=== PATIENT | female | born 1970 | race Hispanic/Latino ===

== ENCOUNTER 2016-12-12 13:14 | Emergency (ER) | payer OTHER ==
[2016-12-12 13:15] VITALS: BMI 20.3
[2016-12-12 13:26] VITALS: PULSE 75; TEMP 99.3; O2SAT 99
--- NOTE | 2016-12-12 13:38 | ED PDOC ---
Arrival/HPI - General Chief Complaint: Lower Extremity Problem/Injury Time Seen by Provider: 12/12/16 13:23 Historian: Patient - History of Present Illness Narrative History of Present Illness (Text): 12/12/16 13:33 A 46 year old female, whose past medical history includes melanoma, presents to the emergency department complaining of foot injury. Patient is an employee here at [employer] [facility] [place] whom reports twisting her right foot while walking to the nurse office. Patient mentions she had the X-Ray done and has shown a fracture. X- Ray will be repeated for patient. Patient denies any other complaints. PMD: Dr. Munoz Symptom Onset: Sudden Symptom Course: Unchanged Context: Work ([employer]) Past Medical History - Provider Review Nursing Documentation Reviewed: Yes - Infectious Disease Hx of Infectious Diseases: None - Tetanus Immunization Tetanus Immunization: Unknown - Reproductive Menopause: No - Cardiac Hx Cardiac Arrhythmia: (bigemeny) - Hematological/Oncological Hx Cancer: Yes (melonoma) - Psychiatric Hx Depression: No Hx Emotional Abuse: No Hx Physical Abuse: No Hx Substance Use: No - Suicidal Assessment Feels Threatened In Home Enviroment: No Family/Social History - Physician Review Nursing Documentation Reviewed: Yes Family/Social History: No Known Family HX Smoking Status: Unknown If Ever Smoked Hx Alcohol Use: No Hx Substance Use: No Allergies/Home Meds Allergies/Adverse Reactions: Allergies No Known Allergies Allergy (Verified 11/12/12 09:09) Review of Systems - Physician Review All systems were reviewed & negative as marked: Yes - Review of Systems Musculoskeletal: Other (foot pain) Neurological: absent: Headache, Dizziness Physical Exam Vital Signs Reviewed: Yes Vital Signs Temp Pulse Resp BP Pulse Ox 12/12/16 15:05 75 18 132/80 99 12/12/16 13:20 99.3 F 75 16 135/87 99 Temperature: Afebrile Blood Pressure: Normal Pulse: Regular Respiratory Rate: Normal Appearance: Positive for: Well-Appearing Pain Distress: None Mental Status: Positive for: Alert and Oriented X 3 - Systems Exam Head: Present: Atraumatic, Normocephalic Pupils: Present: PERRL Extroacular Muscles: Present: EOMI Conjunctiva: Present: Normal Mouth: Present: Moist Mucous Membranes Neck: Present: Normal Range of Motion Respiratory/Chest: Present: Clear to Auscultation, Good Air Exchange. No: Respiratory Distress, Accessory Muscle Use Cardiovascular: Present: Regular Rate and Rhythm, Normal S1, S2. No: Murmurs Abdomen: Present: Normal Bowel Sounds. No: Tenderness, Distention, Peritoneal Signs Back: Present: Normal Inspection Upper Extremity: Present: Normal Inspection. No: Cyanosis, Edema Lower Extremity: Present: Edema, Tenderness (right-side lateral foot, no ankle tenderness), Swelling (slight hematoma right lateral foot; no ankle swelling), Neurovascularly Intact. No: Erythema, Deformity Neurological: Present: GCS=15, CN II-XII Intact, Speech Normal Skin: Present: Warm, Dry, Normal Color. No: Rashes Psychiatric: Present: Alert, Oriented x 3, Normal Insight, Normal Concentration Medical Decision Making ED Course and Treatment: 12/12/16 13:53 Impression: 46 year old female with foot injury. Physical exam shows tenderness of right-side lateral foot, edema, slight hematoma. r/o Fracture Plan: -- Right Foot X-Ray -- Reassess and disposition Progress Notes: 12/12/2016 14:02 Foot X-Ray IMPRESSION: Transverse nondisplaced fracture through the base of the 5th metatarsal Dictator : Vega Trejo MD 12/12/16 15:08 Case was discussed with Dr. Salazar, Orthopedics as per patient request. He recommended placing foot in a surgical shoe and ervin wrap. Also recommended giving patient crutches and to follow up tomorrow with Dr. Salazar tomorrow at 10am. Melissa HINA gave her crutches with instructions. A copy of the xrays were given to this patient. Family at bedside will take her home. - RAD Interpretation Radiology Orders: 12/12/16 13:37 FOOT RIGHT 3 VIEWS ROUTINE [RAD] Stat Health Technician Hearing: ED Physician - Medication Orders Current Medication Orders: Discontinued Medications Ibuprofen (Motrin Tab) 600 mg PO STAT STA Stop: 12/12/16 13:39 Last Admin: 12/12/16 13:51 Dose: 600 mg - Scribe Statement The provider has reviewed the documentation as recorded by the Nolvia Kimball Provider Scribe Attestation: All medical record entries made by the Nolvia were at my direction and personally dictated by me. I have reviewed the chart and agree that the record accurately reflects my personal performance of the history, physical exam, medical decision making, and the department course for this patient. I have also personally directed, reviewed, and agree with the discharge instructions and disposition. Disposition/Present on Arrival - Present on Arrival Any Indicators Present on Arrival: No History of DVT/PE: No History of Uncontrolled Diabetes: No Urinary Catheter: No History of Decub. Ulcer: No History Surgical Site Infection Following: None - Disposition Have Diagnosis and Disposition been Completed?: Yes Diagnosis: Foot fracture Disposition: HOME/ ROUTINE Disposition Time: 15:08 Patient Plan: Discharge Condition: IMPROVED Discharge Instructions (ExitCare): Foot Fracture in Adults (ED) Additional Instructions: Ms Bangura, thank you for letting us take care of you today. Your provider was Dr. Gregorio You were treated for Foot Fracture. The emergency medical care you received today was directed at your acute symptoms. If you were prescribed any medication, please fill it and take as directed. It may take several days for your symptoms to resolve. Return to the Emergency Department if your symptoms worsen, do not improve, or if you have any other problems. Please contact your doctor or call one of the physicians/clinics you have been referred to that are listed on the Patient Visit Information form that is included in your discharge packet. Bring any paperwork you were given at discharge with you along with any medications you are taking to your follow up visit. Our treatment cannot replace ongoing medical care by a primary care provider (PCP) outside of the emergency department. Thank you for allowing the [facility] team to be part of your care today. If you had an X-Ray or CT scan: A Radiologist will review the ED reading if any change in treatment is needed we will contact you. If you had a blood, urine, or wound culture: It will take several days for the results, if any change in treatment is needed we will contact you. If you had an STI test: It will take 48 hours for the results. Please call after 1 week if you have not heard back. Prescriptions: Ibuprofen [Motrin] 600 mg PO Q6 PRN #30 tab PRN Reason: Pain, Moderate (4-7) Referrals: Raghu Quarles MD [Primary Care Provider] - Follow up with primary Vega Flores DO [Staff Provider] - Follow up with primary Forms: Megadyne (Korean), WORK NOTE
--- NOTE | 2016-12-12 14:03 | RAD ---
PROCEDURE: Right Foot Radiographs. HISTORY: twisted ankle r/o fx COMPARISON: None. FINDINGS: BONES: Transverse nondisplaced fracture through the base of the 5th metatarsal JOINTS: Normal. SOFT TISSUES: Normal. OTHER FINDINGS: None. IMPRESSION: Transverse nondisplaced fracture through the base of the 5th metatarsal
[2016-12-12 15:07] VITALS: BP 132/80; RESP 18
== END 2016-12-12 15:08 | disposition home or self-care (01) ==
LOC: ED 13:14
DX: S92.354A Nondisplaced fracture of fifth metatarsal bone, right foot, initial encounter for closed fracture (principal); X50.0XXA Overexertion from strenuous movement or load, initial encounter; Y93.01 Activity, walking, marching and hiking; Y92.238 Other place in hospital as the place of occurrence of the external cause; Y99.8 Other external cause status